=== PATIENT | female | born 1985 | race Caucasian/White ===

== ENCOUNTER 2016-12-09 19:07 | Emergency (ER) | payer MEDICARE ==
[~2016-12-09 19:07] MED LIST: CLEOCIN150 MG PO; HYDROCODON-ACE1 EAC2 PO; VIBRAMYCIN100 MG PO
== END 2016-12-09 19:48 | disposition home or self-care (01) ==
LOC: ER 19:07
DX: S61.411A Laceration without foreign body of right hand, initial encounter (principal); W26.8XXA Contact with other sharp object(s), not elsewhere classified, initial encounter; Y92.009 Unspecified place in unspecified non-institutional (private) residence as the place of occurrence of the external cause; K03.81 Cracked tooth; K08.89 Other specified disorders of teeth and supporting structures; F17.210 Nicotine dependence, cigarettes, uncomplicated; Z88.0 Allergy status to penicillin; Z88.1 Allergy status to other antibiotic agents; Z88.2 Allergy status to sulfonamides
CPT/HCPCS: 99070; 99282